=== PATIENT | female | born 1975 | race Caucasian/White ===

== ENCOUNTER 2017-04-15 13:51 | Emergency (ER) | payer OTHER ==
[~2017-04-15] VITALS: Ht 149.8 cm; Wt 120.7 kg
[2017-04-15] MEDS ORDERED: AVPAK PRIMIDON250 M1 PO (13:53)
[2017-04-15] MEDS ORDERED: NATURE'S BLEND F1 MG PO (13:53)
[2017-04-15] MEDS ORDERED: TEGRETOL XR200 MG PO (13:53)
[2017-04-15] MEDS ORDERED: LEVOTHYROXINE50 MCG PO (13:53)
[2017-04-15] MEDS ORDERED: ZESTORETIC 10-1 EACH PO (14:00)
== END 2017-04-15 14:37 | disposition home or self-care (01) ==
LOC: ED 13:51
DX: Z76.0 Encounter for issue of repeat prescription (principal); Z79.899 Other long term (current) drug therapy

== ENCOUNTER 2024-04-21 23:30 | Inpatient (IN) | payer OTHER ==
[~2024-04-21] VITALS: Ht 152.4 cm; Wt 105.9 kg
[~2024-04-21 23:30] MED LIST: AVPAK PRIMIDON250 M1 PO; LEVOTHYROXINE50 MCG PO; NATURE'S BLEND F1 MG PO; TEGRETOL XR200 MG PO; ZESTORETIC 10-1 EACH PO
[2024-04-21] MEDS ORDERED: Dexamethasone Sodium Phospha 4 MG/ML VIAL IV ONE (23:35)
[2024-04-21 23:45] VITALS: BP 157/79
[2024-04-22 00:04] LABS: BASO % 0.5 % (0.0-1.0); EOS # 0.5 10*3/uL (0.0-0.4); EOS % 8.6 % (1.0-4.0); HEMATOCRIT 36.6 % (37.0-47.0); MEAN CELL VOLUME 104.9 fl (81.0-99.0); MEAN CORPUSCULAR HGB CONC 31.4 g/dl (33.0-37.0); MONO # 0.7 10*3/uL (0.1-1.0); MONO % 11.5 % (3.0-9.0); NEUT # 3.3 10*3/uL (2.3-7.9); NEUT % 56.1 % (47.0-73.0); PLATELET COUNT AUTOMATED 265 10*3/uL (130-400); RED BLOOD COUNT 3.49 10*6/uL (4.10-5.10); RED CELL DISTRI WIDTH 15.2 % (0-14.5); WHITE BLOOD COUNT 5.8 10*3/uL (4.8-10.8)
[2024-04-22 00:32] LABS: CHLORIDE 96 mmol/L (98-107); POTASSIUM 4.6 mmol/L (3.4-5.1)
[2024-04-22 00:41] LABS: BUN 27 mg/dl (9-23)
[2024-04-22 01:08] VITALS: BP 99/68
[2024-04-22] MEDS ORDERED: BISACODYL 5 MG TAB PO PRN (01:35)
[2024-04-22] MEDS ORDERED: ACETAMINOPHEN 325 MG TAB PO PRN (01:35)
[2024-04-22] MEDS ORDERED: Ondansetron Hydrochloride 4 MG/2 ML VIAL IV PRN (01:35)
[2024-04-22] MEDS ORDERED: MORPHINE Sulfate 2 MG/ML SYR IV PRN (01:35)
[2024-04-22] MEDS ORDERED: Acetaminophen/Hydrocodone 5 MG/325 MG TABLET PO PRN (01:35)
[2024-04-22] MEDS ORDERED: ACETAMINOPHEN 650 MG SUPP R PRN (01:35)
[2024-04-22] MEDS ORDERED: CARBAMAZEPINE PO (02:21)
[2024-04-22] MEDS ORDERED: TYLENOL325 M2 PO (02:21)
[2024-04-22] MEDS ORDERED: REMERON15 M2 PO (02:22)
[2024-04-22] MEDS ORDERED: FUROSEMIDE40 MG PO (02:27)
[2024-04-22] MEDS ORDERED: LIPITOR40 MG PO (02:28)
[2024-04-22] MEDS ORDERED: POTASSIUM CHLO20 ME4 PO (02:28)
[2024-04-22] MEDS ORDERED: ASPIRIN ADULT L81 M1 PO (02:31)
[2024-04-22] MEDS ORDERED: VITAMIN B-12100 MCG PO (02:32)
[2024-04-22 02:33] VITALS: BP 115/67
[2024-04-22 06:15] LABS: ALKALINE PHOSPHATASE 60 U/L (46-116); BUN 19 mg/dl (9-23); CHLORIDE 97 mmol/L (98-107); TOTAL PROTEIN 7.7 gm/dL (6.0-8.0)
[2024-04-22 06:16] LABS: POTASSIUM 4.7 mmol/L (3.4-5.1); SGPT/ALT < 7 U/L (5-49)
[2024-04-22 07:45] LABS: BASO % 0.2 % (0.0-1.0); EOS # 0.1 10*3/uL (0.0-0.4); HEMATOCRIT 36.3 % (37.0-47.0); MEAN CELL VOLUME 104.3 fl (81.0-99.0); MEAN CORPUSCULAR HGB CONC 31.7 g/dl (33.0-37.0); MEAN PLATELET VOLUME 10.6 fl (9.6-12.3); MONO # 0.4 10*3/uL (0.1-1.0); NEUT # 3.9 10*3/uL (2.3-7.9); NEUT % 74.4 % (47.0-73.0); PLATELET COUNT AUTOMATED 282 10*3/uL (130-400); RED BLOOD COUNT 3.48 10*6/uL (4.10-5.10); RED CELL DISTRI WIDTH 14.9 % (0-14.5); WHITE BLOOD COUNT 5.3 10*3/uL (4.8-10.8)
[2024-04-22] MEDS ORDERED: Dexamethasone Sodium Phospha 4 MG/ML VIAL IV SCH (10:00)
[2024-04-22] MEDS ORDERED: POTASSIUM CHLORIDE 20 MEQ TAB PO SCH (10:00)
[2024-04-22] MEDS ORDERED: FUROSEMIDE 40 MG TAB PO SCH (10:00)
[2024-04-22] MEDS ORDERED: LISINOPRIL 10 MG TAB PO SCH (10:00)
[2024-04-22] MEDS ORDERED: ASPIRIN, CHEWABLE 81 MG TAB PO SCH (10:00)
[2024-04-22] MEDS ORDERED: REMDESIVIR 200 MG in SODIUM CHLORIDE 0.9% 210 ML IV ONE (10:00)
[2024-04-22] MEDS ORDERED: Enoxaparin Sodium 40 MG/0.4 ML SYR SC SCH (10:00)
[2024-04-22] MEDS ORDERED: ATORVASTATIN CALCIUM 40 MG TABLET PO SCH (10:00)
[2024-04-22] MEDS ORDERED: carBAMazepine XR 100 MG TAB PO SCH (14:00)
[2024-04-22] MEDS ORDERED: PRIMIDONE 250 MG TAB PO SCH (14:00)
[2024-04-22 16:43] VITALS: BP 105/67
[2024-04-22 17:13] VITALS: BP 95/42
[2024-04-22 19:28] VITALS: BP 87/55
[2024-04-22 20:00] VITALS: BP 105/62
[2024-04-22] MEDS ORDERED: Mirtazapine 15 MG TAB PO SCH (22:00)
[2024-04-23] VITALS (7 sets, daily range): BP systolic 93–115; BP diastolic 41–66
[2024-04-23] MEDS ORDERED: REMDESIVIR 100 MG in SODIUM CHLORIDE 0.9% 230 ML IV SCH (10:00)
[2024-04-23] MEDS ORDERED: PRIMIDONE 250 MG TAB PO SCH (10:00)
[2024-04-23] MEDS ORDERED: carBAMazepine XR 100 MG TAB PO SCH (10:00)
[2024-04-24] VITALS: BP 97/59
[2024-04-24 08:00] VITALS: BP 100/57
[2024-04-24] MEDS ORDERED: HEEL PROTECTOR DEVICE ONE (12:03)
[2024-04-24] MEDS ORDERED: CHAIR CUSHION DEVICE ONE (12:03)
[2024-04-24 16:00] VITALS: BP 94/51
[2024-04-24 20:00] VITALS: BP 95/53
[2024-04-24] MEDS ORDERED: MICONAZOLE NITRATE 2% 75 GM BOT T SCH (22:00)
[2024-04-25] VITALS: BP 107/66
[2024-04-25 08:00] VITALS: BP 111/57
[2024-04-25 12:00] VITALS: BP 105/62
[2024-04-25 16:00] VITALS: BP 120/56
[2024-04-25 20:00] VITALS: BP 109/47
[2024-04-25] MEDS ORDERED: LEVETIRACETAM 250 MG TAB PO SCH (22:00)
[2024-04-26] VITALS: BP 111/63
[2024-04-26 08:00] VITALS: BP 117/63
[2024-04-26 12:00] VITALS: BP 127/60
[2024-04-26 16:00] VITALS: BP 93/50
[2024-04-26 20:00] VITALS: BP 107/58
[2024-04-27] VITALS: BP 106/63
[2024-04-27 06:18] LABS: BASO % 0.6 % (0.0-1.0); EOS # 0.2 10*3/uL (0.0-0.4); HEMATOCRIT 34.9 % (37.0-47.0); MEAN CELL VOLUME 106.4 fl (81.0-99.0); MEAN CORPUSCULAR HGB 33.5 pg (27.0-31.0); MEAN CORPUSCULAR HGB CONC 31.5 g/dl (33.0-37.0); MEAN PLATELET VOLUME 10.6 fl (9.6-12.3); MONO # 0.7 10*3/uL (0.1-1.0); MONO % 9.9 % (3.0-9.0); NEUT # 4.1 10*3/uL (2.3-7.9); NEUT % 61.6 % (47.0-73.0); PLATELET COUNT AUTOMATED 353 10*3/uL (130-400); RED BLOOD COUNT 3.28 10*6/uL (4.10-5.10); RED CELL DISTRI WIDTH 14.9 % (0-14.5); WHITE BLOOD COUNT 6.6 10*3/uL (4.8-10.8)
[2024-04-27 06:30] LABS: ALKALINE PHOSPHATASE 50 U/L (46-116); BUN 14 mg/dl (9-23); CHLORIDE 101 mmol/L (98-107); POTASSIUM 3.9 mmol/L (3.4-5.1); TOTAL PROTEIN 6.9 gm/dL (6.0-8.0)
[2024-04-27 06:38] LABS: SGPT/ALT < 7 U/L (5-49)
[2024-04-27 08:00] VITALS: BP 108/48
[2024-04-27] MEDS ORDERED: MED. FROM HOME 1 EACH EA PO SCH ×2 (10:00)
[2024-04-27 12:00] VITALS: BP 122/64
== END 2024-04-27 15:50 | DRG 137 ==
LOC: ED 23:30 → EDHOLD 04-22 01:19 → 4E 04-22 01:19
PROVIDERS: Internal Medicine; ADMIT Internal Medicine; ATTEND Internal Medicine
PROC: XW033E5 Introduction of Remdesivir Anti-infective into Peripheral Vein, Percutaneous Approach, New Technology Group 5 (ICD-10-PCS; principal; 2024-04-22)
DX: U07.1 COVID-19 (principal); J96.01 Acute respiratory failure with hypoxia; E03.9 Hypothyroidism, unspecified; E87.8 Other disorders of electrolyte and fluid balance, not elsewhere classified; D53.9 Nutritional anemia, unspecified; I10 Essential (primary) hypertension; G47.00 Insomnia, unspecified; E66.01 Morbid (severe) obesity due to excess calories; E78.5 Hyperlipidemia, unspecified; G40.909 Epilepsy, unspecified, not intractable, without status epilepticus; Z79.899 Other long term (current) drug therapy; Z79.01 Long term (current) use of anticoagulants; Z68.42 Body mass index [BMI] 45.0-49.9, adult; Z79.2 Long term (current) use of antibiotics

== ENCOUNTER → 2024-07-06 | Outpatient (CLI) | payer OTHER ==
[~2024-07-06] MED LIST changes: +ASPIRIN ADULT L81 M1 PO; +CARBAMAZEPINE PO; +FUROSEMIDE40 MG PO; +LIPITOR40 MG PO; +POTASSIUM CHLO20 ME4 PO; +REMERON15 M2 PO; +TYLENOL325 M2 PO; +VITAMIN B-12100 MCG PO
== END | disposition home or self-care (01) ==
LOC: ORTHO 11:28
PROVIDERS: ATTEND Orthopaedic Surgery
DX: S82.831A Other fracture of upper and lower end of right fibula, initial encounter for closed fracture (principal); M25.571 Pain in right ankle and joints of right foot; X58.XXXA Exposure to other specified factors, initial encounter; Y93.89 Activity, other specified; Y92.89 Other specified places as the place of occurrence of the external cause; Y99.8 Other external cause status

== ENCOUNTER → 2024-07-22 | Outpatient (CLI) | payer MEDICAID | END | disposition home or self-care (01) | LOC: CANPRECLI → ORTHO 03:06 | PROVIDERS: ATTEND Orthopaedic Surgery | DX: M79.89 Other specified soft tissue disorders (principal); M25.571 Pain in right ankle and joints of right foot ==

== ENCOUNTER → 2024-10-02 | Outpatient (CLI) | payer MEDICAID | END | disposition home or self-care (01) | LOC: ORTHO 01:58 | PROVIDERS: ATTEND Orthopaedic Surgery | DX: S82.64XD Nondisplaced fracture of lateral malleolus of right fibula, subsequent encounter for closed fracture with routine healing (principal); X58.XXXD Exposure to other specified factors, subsequent encounter ==